=== PATIENT | female | born 1955 | race Caucasian/White ===

== ENCOUNTER 2024-02-19 13:38 | Emergency (ER) | payer OTHER ==
[~2024-02-19] VITALS: Ht 157.5 cm; Wt 45.2 kg
[2024-02-19] MEDS: LIDOCAINE 1% HCL (LOCAL ANESTH.) INJ 20ML MDV IJ ONE (14:02)
[2024-02-19] MEDS ORDERED: CEPH500C PO (14:23)
[2024-02-19 14:24] VITALS: BP 127/67; PULSE 68; RESP 18; TEMP 98.3; O2SAT 99
== END 2024-02-19 14:29 | disposition home or self-care (01) ==
LOC: ER 13:38
DX: S61.412A Laceration without foreign body of left hand, initial encounter (principal); Z79.899 Other long term (current) drug therapy; Z91.09 Other allergy status, other than to drugs and biological substances; W26.0XXA Contact with knife, initial encounter; Y93.89 Activity, other specified; Y92.89 Other specified places as the place of occurrence of the external cause; Y99.8 Other external cause status
CPT/HCPCS: 12002